=== PATIENT | female | born 1945 | race Caucasian/White ===

== ENCOUNTER → 2017-06-21 | Outpatient (CLI) | payer MEDICARE, OTHER ==
[2016-10-14 10:28] VITALS: BMI 29.3
[~2017-06-21] MED LIST: ACET-1718 PO; AMI10 PO; AMIT-104 PO; AMMO120C2 TP; AMOX500T10 PO; ASP325 PO; ASPI-757 PO; ATOR10TA65 PO; ATOR20TA65 PO; BLOO-1492 MC; BLOO-1503 MC; BUDE10.2 INH; CHOL10005 PO; CHOL200021 PO; CHOL200022 PO; CRAN500T; ESTR42.59 VG; ESZO2TAB30 PO; FLAX100030 PO; FLUT16SP20 NS; FURO-47 PO; HYDR-2966 PO; INSU100C14 SQ; INSU100I35 SQ; INSU100V24 SQ; LANI SQ; LEVI SUBQ; LORA-630 PO; METO100T20 PO; METXL50 PO; MONT10TA4 PO; MULT-1335 PO; MULT1TAB64 PO; NITR-105 PO; OMEG-11 PO; OMEP-125 PO; OXYGENHOME INH; POTA20TA85 PO; PROBIOTIC1 EACH PO; PSYL283P7 PO; RAMI10CA52 PO; RAMI10CA72 PO; RAMI2.5C42 PO; RED600CA19 PO; SIMV-42 PO; SIMV-49 PO; SULF1TAB24 PO; VERA100C4 PO; VERA200C8 PO
== END ==
LOC: LAB 07:08
PROVIDERS: ATTEND Internal Medicine
DX: I25.810 Atherosclerosis of coronary artery bypass graft(s) without angina pectoris (principal); I50.32 Chronic diastolic (congestive) heart failure; E78.00 Pure hypercholesterolemia, unspecified
CPT/HCPCS: 36415; 82310; 82374; 82435; 82465; 82565; 82947; 83718; 84132; 84295; 84478; 84520

== ENCOUNTER → 2017-08-17 | Outpatient (CLI) | payer MEDICARE, OTHER ==
[2016-10-14 10:28] VITALS: BMI 29.3
[~2017-08-17] MED LIST changes: +ATOR40TA69 PO
== END ==
LOC: LAB 09:40
PROVIDERS: ATTEND Internal Medicine
DX: E11.311 Type 2 diabetes mellitus with unspecified diabetic retinopathy with macular edema (principal)
CPT/HCPCS: 36415; 82947; 83036

== ENCOUNTER → 2017-09-25 | Outpatient (CLI) | payer MEDICARE, OTHER ==
[2016-10-14 10:28] VITALS: BMI 29.3
== END ==
LOC: LAB 06:52
PROVIDERS: ATTEND Internal Medicine
DX: E78.00 Pure hypercholesterolemia, unspecified (principal)
CPT/HCPCS: 36415; 82040; 82247; 82310; 82374; 82435; 82465; 82565; 82947; 83718; 84075; 84132; 84155; 84295; 84450; 84460; 84478; 84520

== ENCOUNTER → 2017-09-25 | Outpatient (CLI) | payer MEDICARE, OTHER ==
[2016-10-14 10:28] VITALS: BMI 29.3
--- NOTE | 2017-09-26 08:20 | RADIOLOGY IMAGING REPORT ---
FACILITY: [facility] - [place] PATIENT NAME: RICHY ISLAS : [id number] MR: [id number] V: [id number] EXAM DATE: ORDERING PHYSICIAN: XENIA JOHNSON TECHNOLOGIST: Dona Tan PROCEDURE:BILATERAL DIGITAL SCREENING MAMMOGRAM WITH CAD ASSISTED INTERPRETATION & 3D TOMOSYNTHESIS COMPARISON:Prior mammograms 09/23/16, 09/11/15, 09/09/14, 09/04/13, 08/31/12, 08/23/11. INDICATIONS:screening FINDINGS: Moderately heterogeneous fibroglandular tissue is seen throughout the breasts. The parenchymal pattern has remained stable allowing for difference in mammographic technique & patient positioning. There is no evidence of malignant appearing mass, malignant appearing calcifications or other secondary sign of malignancy in either breast. DIAGNOSTIC CATEGORY 1--NEGATIVE. RECOMMENDATIONS: ROUTINE MAMMOGRAM AND CLINICAL EVALUATION. IMPRESSION: BIRADS 1: Negative No significant abnormality is seen. Dictated by: Ivanna Sanz M.D. on 09/25/2017 at 14:57 Transcribed by: JOSE on 09/25/2017 at 15:09 Approved by: Ivanna Sanz M.D. on 09/26/2017 at 8:19 [facility]
== END ==
LOC: MAMO 01:49
PROVIDERS: ATTEND Internal Medicine
DX: Z12.31 Encounter for screening mammogram for malignant neoplasm of breast (principal)
CPT/HCPCS: 77063; 77067

== ENCOUNTER → 2017-10-26 | Outpatient (CLI) | payer MEDICARE, OTHER ==
[2016-10-14 10:28] VITALS: BMI 29.3
== END ==
LOC: LAB 08:15
PROVIDERS: ATTEND Internal Medicine
DX: I10 Essential (primary) hypertension (principal); E87.1 Hypo-osmolality and hyponatremia; E78.00 Pure hypercholesterolemia, unspecified
CPT/HCPCS: 36415; 82310; 82374; 82435; 82565; 82947; 84132; 84295; 84520

== ENCOUNTER → 2018-01-31 | Outpatient (CLI) | payer MEDICARE, OTHER ==
[2016-10-14 10:28] VITALS: BMI 29.3
[~2018-01-31] MED LIST changes: +ATOR-1 PO; +CHOL200018 PO; -CHOL200022 PO; +FURO80TA70 PO; -RAMI10CA52 PO; +RAMI10CA9 PO; -RAMI2.5C42 PO; +RAMI2.5C43 PO
== END ==
LOC: LAB 08:04
PROVIDERS: ATTEND Internal Medicine Cardiovascular Disease
DX: E78.00 Pure hypercholesterolemia, unspecified (principal)
CPT/HCPCS: 36415; 82040; 82247; 82310; 82374; 82435; 82465; 82565; 82947; 83718; 84075; 84132; 84155; 84295; 84450; 84460; 84478; 84520

== ENCOUNTER → 2018-01-31 | Outpatient (CLI) | payer MEDICARE, OTHER ==
[2016-10-14 10:28] VITALS: BMI 29.3
== END ==
LOC: LAB 08:08
PROVIDERS: ATTEND Emergency Medicine
DX: E11.311 Type 2 diabetes mellitus with unspecified diabetic retinopathy with macular edema (principal)
CPT/HCPCS: 83036

== ENCOUNTER → 2018-04-27 | Outpatient (CLI) | payer MEDICARE, OTHER ==
[2016-10-14 10:28] VITALS: BMI 29.3
== END ==
LOC: LAB 08:28
PROVIDERS: ATTEND Internal Medicine
DX: E11.311 Type 2 diabetes mellitus with unspecified diabetic retinopathy with macular edema (principal)
CPT/HCPCS: 36415; 82310; 82374; 82435; 82565; 82947; 83036; 84132; 84295; 84520

== ENCOUNTER → 2018-07-30 | Outpatient (CLI) | payer MEDICARE, OTHER ==
[2016-10-14 10:28] VITALS: BMI 29.3
== END ==
LOC: US 02:05
PROVIDERS: ATTEND Internal Medicine Cardiovascular Disease
DX: I34.0 Nonrheumatic mitral (valve) insufficiency (principal); I36.1 Nonrheumatic tricuspid (valve) insufficiency; I37.1 Nonrheumatic pulmonary valve insufficiency; Z95.1 Presence of aortocoronary bypass graft
CPT/HCPCS: 93306

== ENCOUNTER → 2018-07-31 | Outpatient (CLI) | payer MEDICARE, OTHER ==
[2016-10-14 10:28] VITALS: BMI 29.3
== END ==
LOC: LAB 07:49
PROVIDERS: ATTEND Internal Medicine Cardiovascular Disease
DX: E78.00 Pure hypercholesterolemia, unspecified (principal)
CPT/HCPCS: 36415; 82040; 82247; 82310; 82374; 82435; 82465; 82565; 82947; 83718; 84075; 84132; 84155; 84295; 84450; 84460; 84478; 84520

== ENCOUNTER → 2018-08-20 | Outpatient (CLI) | payer MEDICARE, OTHER ==
[2016-10-14 10:28] VITALS: BMI 29.3
[~2018-08-20] MED LIST changes: +EZET10TA41 PO
[2018-08-20 08:50] LABS: PLATELET COUNT, AUTOMATED 310 K/uL (150-450)
== END ==
LOC: LAB 08:33
PROVIDERS: ATTEND Internal Medicine
DX: I10 Essential (primary) hypertension (principal); E78.5 Hyperlipidemia, unspecified; E11.311 Type 2 diabetes mellitus with unspecified diabetic retinopathy with macular edema; I25.10 Atherosclerotic heart disease of native coronary artery without angina pectoris; I50.9 Heart failure, unspecified
CPT/HCPCS: 36415; 82310; 82374; 82435; 82565; 82947; 83036; 84132; 84295; 84443; 84520; 85025

== ENCOUNTER → 2018-10-02 | Outpatient (CLI) | payer MEDICARE, OTHER ==
[2016-10-14 10:28] VITALS: BMI 29.3
== END ==
LOC: LAB 10:18
PROVIDERS: ATTEND Internal Medicine
DX: I25.810 Atherosclerosis of coronary artery bypass graft(s) without angina pectoris (principal); I50.32 Chronic diastolic (congestive) heart failure; E78.00 Pure hypercholesterolemia, unspecified
CPT/HCPCS: 36415; 82310; 82374; 82435; 82565; 82947; 84132; 84295; 84520

== ENCOUNTER → 2018-10-25 | Outpatient (CLI) | payer MEDICARE, OTHER ==
[2016-10-14 10:28] VITALS: BMI 29.3
[~2018-10-25] MED LIST changes: -OMEP-125 PO; +OMEP-126 PO
--- NOTE | 2018-10-25 16:04 | RADIOLOGY IMAGING REPORT ---
FACILITY: [facility] - [place] PATIENT NAME: RICHY ISLAS : [id number] MR: [id number] V: [id number] EXAM DATE: ORDERING PHYSICIAN: HARRIETT GUSMAN TECHNOLOGIST: Cyndi Kumar PROCEDURE: BILATERAL DIGITAL SCREENING MAMMOGRAM WITH CAD ASSISTED INTERPRETATION & 3D TOMOSYNTHESIS REASON FOR STUDY: Screening FAMILY HISTORY OF BREAST CANCER: None BREAST PROCEDURES/TREATMENTS: None COMPARISON: 09/25/17, 09/23/16, 09/11/15, 09/09/14, 09/04/13, 08/31/12 VIEWS OBTAINED: Bilateral 2D & 3D full field CC & MLO projections BREAST DENSITY: The breasts are heterogeneously dense which can obscure small masses. MAMMOGRAM FINDINGS: The parenchymal pattern has remained stable allowing for difference in mammographic technique & patient positioning. IMPRESSION: BIRADS 1: Negative. DIAGNOSTIC CATEGORY 1--NEGATIVE. RECOMMENDATIONS: ROUTINE MAMMOGRAM AND CLINICAL EVALUATION. Dictated by: Ivanna Sanz M.D. on 10/25/2018 at 10:29 Transcribed by: PINEDA on 10/25/2018 at 11:32 Approved by: Ivanna Sanz M.D. on 10/25/2018 at 16:03 [facility]
== END ==
LOC: MAMO 01:04
PROVIDERS: ATTEND Internal Medicine
DX: Z12.31 Encounter for screening mammogram for malignant neoplasm of breast (principal)
CPT/HCPCS: 77063; 77067

== ENCOUNTER → 2018-12-03 | Outpatient (CLI) | payer MEDICARE, OTHER ==
[2016-10-14 10:28] VITALS: BMI 29.3
== END ==
LOC: LAB 07:26
PROVIDERS: ATTEND Internal Medicine
DX: I25.810 Atherosclerosis of coronary artery bypass graft(s) without angina pectoris (principal); E78.00 Pure hypercholesterolemia, unspecified
CPT/HCPCS: 36415; 82040; 82247; 82310; 82374; 82435; 82465; 82565; 82947; 83718; 84075; 84132; 84155; 84295; 84450; 84460; 84478; 84520